=== PATIENT | male | born 1940 | race Caucasian/White ===

== ENCOUNTER 2025-01-09 01:31 | Inpatient (IN) | payer OTHER ==
[2025-01-09 01:41] VITALS: BMI 29.1
[2025-01-09] MEDS ORDERED: ACETAMINOPHEN INJECTION 100 ML ONE (02:28)
[2025-01-09] MEDS: SODIUM CHLORIDE 0.9% 500 ML INFUS.BAG IV ONE ×3 (02:41→06:32)
[2025-01-09] MEDS: ACETAMINOPHEN 1000 MG/100 ML BAG IVPB ONE (02:41)
[2025-01-09 02:49] LABS: BASOPHILS # 0.02 x10^3/uL (0.01-0.08)
[2025-01-09 02:51] LABS: ABSOLUTE IMMATURE GRANULOCYTES 0.06 x10^3/uL (0.0-0.031); EOSINOPHIL % 2.4 % (0.8-7.0); EOSINOPHILS # 0.22 x10^3/uL (0.04-0.54); IMMATURE PLATELET FRACTION # 15.00 x10^3/uL; MCHC 29.5 g/dl (32.3-36.5); MEAN CELL VOLUME 100.3 fl (79.0-92.2); MONOCYTE # 0.47 x10^3/uL (0.30-0.82); MONOCYTE % 5.2 % (5.3-12.2); RDW 13.1 % (12.6-16.6)
[2025-01-09 02:52] LABS: VENOUS BASE EXCESS -6.5 mmol/L (-2-2); VENOUS O2 SATURATION 42.0 % (70-80); VENOUS PCO2 35.0 mmHg (38-52); VENOUS PH 7.338 (7.310-7.410)
[2025-01-09 03:06] LABS: EPI CELLS >36 /uL (0-25.1); HYALINE CASTS 3 /uL (0-3.1); URINE APPEARANCE CLEAR; URINE BACTERIA 11 /uL (0-1359); URINE BILIRUBIN NEGATIVE (NEGATIVE); URINE COLOR DK YELLOW; URINE GLUCOSE (UA) NEGATIVE (NEGATIVE); URINE KETONE TRACE (NEGATIVE); URINE LEUK ESTERASE TRACE (NEGATIVE); URINE NITRITE NEGATIVE (NEGATIVE); URINE PROTEIN 1+ (NEGATIVE); URINE RBC 12 /uL (0-23.9); URINE UROBILINOGEN 1.0 mg/dL (0.2-1.0); URINE WBC 32 /uL (0-25.8)
[2025-01-09 03:20] LABS: CO2 22.0 mmol/L (21-32); GLUCOSE,RANDOM 151.0 mg/dL (74-106)
[2025-01-09 03:23] LABS: SGPT/ALT 33.0 U/L (13-61)
[2025-01-09 03:24] LABS: CREATININE 1.2 mg/dL (0.55-1.3); SGOT/AST 27.0 U/L (15-37)
[2025-01-09 03:25] LABS: TOT PROT 7.8 g/dl (6.4-8.2)
[2025-01-09 03:26] LABS: ALK PHOS 69.0 U/L (45-117)
[2025-01-09 03:28] LABS: LACTIC ACID 4.6 mmol/L (0.4-2.0)
[2025-01-09] MEDS ORDERED: CEFTRIAXONE 1 GM/50 ML BAG ONE (04:14)
[2025-01-09] MEDS: CEFTRIAXONE 1,000 MG in DEXTROSE 5%-WATER - 50 ML IVPB ONE (04:15)
[2025-01-09] MEDS ORDERED: AZITHROMYCIN IVPB 500 MG/250 ML BAG IVPB ONE (04:15)
[2025-01-09] MEDS: AZITHROMYCIN IVPB 500 MG in DEXTROSE 5%-WATER - 250 ML IVPB ONE (04:30)
[2025-01-09] MEDS ORDERED: guaiFENesin/D-METHORPHAN HB 10 ML UNIT-DOSE CUPS PO PRN (05:04)
[2025-01-09] MEDS: SODIUM CHLORIDE 1,000 ML IV SCH ×2 (06:12→07:11)
[2025-01-09] MEDS ORDERED: HALOPERIDOL LACTATE 5 MG/ML ONE (06:23)
[2025-01-09] MEDS ORDERED: PIPERACILLIN/TAZOB 3.375 GM 3.375 GM/50 ML BAG IVPB ONE (06:28)
[2025-01-09] MEDS: HALOPERIDOL LACTATE 5 MG/ML IM ONE (06:28)
[2025-01-09] MEDS ORDERED: THIAMINE HCL 200 MG/2 ML VIAL ONE (06:29)
[2025-01-09] MEDS ORDERED: HEPARIN NA (PORCINE) 5,000 UNITS/ML 1ML VIAL ONE (06:30)
[2025-01-09] MEDS: THIAMINE HCL 200 MG/2 ML VIAL IVPB SCH (06:30)
[2025-01-09 06:35] LABS: MCHC 29.5 g/dl (32.3-36.5); MEAN CELL VOLUME 102.1 fl (79.0-92.2); MEAN PLT VOLUME 10.4 fl (9.4-12.4); RDW 13.2 % (12.6-16.6)
[2025-01-09] MEDS: HEPARIN NA (PORCINE) 5,000 UNITS/ML 1ML VIAL SQ SCH (06:40)
[2025-01-09 06:49] LABS: CO2 19.0 mmol/L (21-32); GLUCOSE,RANDOM 156.0 mg/dL (74-106)
[2025-01-09 06:52] LABS: CREATININE 1.0 mg/dL (0.55-1.3); SGOT/AST 29.0 U/L (15-37); SGPT/ALT 26.0 U/L (13-61)
[2025-01-09 06:54] LABS: TOT PROT 6.2 g/dl (6.4-8.2)
[2025-01-09 06:55] LABS: ALK PHOS 63.0 U/L (45-117)
[2025-01-09] MEDS: PIPERACILLIN/TAZOB 3.375 GM 50 ML IVPB SCH (07:06)
[2025-01-09 07:52] LABS: LACTIC ACID 2.3 mmol/L (0.4-2.0)
[2025-01-09] MEDS: MAGNESIUM SULFATE IN WATER 2 GM/50 ML IVPB IVPB ONE (08:56)
[2025-01-09 09:37] LABS: N-TERMINAL BNP 785.1 pg/ml (5-450)
[2025-01-09] MEDS: AZITHROMYCIN IVPB 500 MG/250 ML BAG IVPB SCH (10:15)
[2025-01-09] MEDS: ASPIRIN 81 MG CHEWABLE TABLETS PO SCH (10:15)
[2025-01-09] MEDS: PIPERACILLIN/TAZOB 3.375 GM 3.375 GM in DEXTROSE 5%-WATER - 50 ML IVPB SCH ×3 (10:15→17:59)
[2025-01-10] MEDS: VANCOMYCIN/WATER FOR INJ (PEG) 1,000 MG/200 ML BAG IVPB ONE (02:25)
[2025-01-10] MEDS ORDERED: CEFTRIAXONE 1,000 MG in DEXTROSE 5%-WATER - 50 ML IVPB SCH (06:00)
[2025-01-10] MEDS ORDERED: AZITHROMYCIN IVPB 500 MG in DEXTROSE 5%-WATER - 250 ML IVPB SCH (06:00)
[2025-01-10 10:17] LABS: ABSOLUTE IMMATURE GRANULOCYTES 0.07 x10^3/uL (0.0-0.031); BASOPHILS # 0.04 x10^3/uL (0.01-0.08); EOSINOPHIL % 6.9 % (0.8-7.0); EOSINOPHILS # 0.60 x10^3/uL (0.04-0.54); MCHC 29.4 g/dl (32.3-36.5); MEAN CELL VOLUME 100.0 fl (79.0-92.2); MEAN PLT VOLUME 10.0 fl (9.4-12.4); MONOCYTE # 0.73 x10^3/uL (0.30-0.82); MONOCYTE % 8.4 % (5.3-12.2); RDW 13.3 % (12.6-16.6)
[2025-01-10 10:41] LABS: CO2 21.0 mmol/L (21-32); GLUCOSE,RANDOM 108.0 mg/dL (74-106)
[2025-01-10 10:44] LABS: CREATININE 1.0 mg/dL (0.55-1.3); SGOT/AST 20.0 U/L (15-37); SGPT/ALT 22.0 U/L (13-61)
[2025-01-10 10:45] LABS: TOT PROT 6.2 g/dl (6.4-8.2)
[2025-01-10 10:47] LABS: ALK PHOS 48.0 U/L (45-117)
[2025-01-11 11:09] LABS: MCHC 29.9 g/dl (32.3-36.5); MEAN CELL VOLUME 99.0 fl (79.0-92.2); MEAN PLT VOLUME 10.0 fl (9.4-12.4); RDW 13.2 % (12.6-16.6)
[2025-01-11 11:42] LABS: IRON SERUM 95 ug/dL (50-175)
[2025-01-11 11:54] LABS: CO2 22.0 mmol/L (21-32); GLUCOSE,RANDOM 131.0 mg/dL (74-106)
[2025-01-11 11:56] LABS: SGPT/ALT 28.0 U/L (13-61)
[2025-01-11 11:57] LABS: CREATININE 1.0 mg/dL (0.55-1.3); IRON SERUM 97.0 ug/dL (50-175); SGOT/AST 27.0 U/L (15-37)
[2025-01-11 11:59] LABS: TOT PROT 6.4 g/dl (6.4-8.2)
[2025-01-11 12:00] LABS: ALK PHOS 51.0 U/L (45-117)
[2025-01-11] MEDS: INSULIN ASPART SLIDING SCALE (NOVOLOG) 1 VIAL SQ SCH (16:21)
[2025-01-11] MEDS ORDERED: INSULIN ASPART SLIDING SCALE (NOVOLOG) 1 VIAL SQ SCH (16:30)
[2025-01-11] MEDS: ROSUVASTATIN CA 20 MG TABLET PO SCH (21:56)
[2025-01-11 22:53] VITALS: RESP 18
[2025-01-12 07:57] LABS: MCHC 30.8 g/dl (32.3-36.5); MEAN CELL VOLUME 98.6 fl (79.0-92.2); MEAN PLT VOLUME 9.8 fl (9.4-12.4); RDW 13.2 % (12.6-16.6)
[2025-01-12] MEDS: TAMSULOSIN HCL 0.4 MG CAP PO SCH (09:28)
[2025-01-12] MEDS: MEMANTINE HCL 10 MG TABLET (FP) PO SCH (09:29)
[2025-01-12] MEDS: FINASTERIDE 5 MG TABLET (FP) PO SCH (09:29)
[2025-01-12] MEDS: MULTIVITAMINS (DAILY MVI) TABLET (FP) PO SCH (09:29)
[2025-01-12] MEDS: amLODIPine BESYLATE 5 MG TABLET (FP) PO SCH (09:29)
[2025-01-12 09:32] LABS: CO2 21.0 mmol/L (21-32); GLUCOSE,RANDOM 104.0 mg/dL (74-106); SGOT/AST 43.0 U/L (15-37); SGPT/ALT 40.0 U/L (13-61)
[2025-01-12 09:34] LABS: TOT PROT 6.4 g/dl (6.4-8.2)
[2025-01-12 09:35] LABS: ALK PHOS 51.0 U/L (45-117); CREATININE 1.0 mg/dL (0.55-1.3)
[2025-01-12] MEDS ORDERED: amLODIPine BESYLATE 5 MG TABLET (FP) PO SCH (10:00)
[2025-01-12] MEDS: ROSUVASTATIN CA 20 MG TABLET PO SCH (22:03)
[2025-01-13 15:19] VITALS: BP 116/67; PULSE 83; TEMP 97.9
== END 2025-01-13 17:37 | disposition home or self-care (01) | DRG 871 ==
LOC: JER 01:31 → JERBED 03:59 → J4S 08:17
PROVIDERS: ADMIT Hospitalist; ATTEND Internal Medicine
DX: A41.89 Other specified sepsis (principal); J69.0 Pneumonitis due to inhalation of food and vomit; R53.2 Functional quadriplegia; G81.94 Hemiplegia, unspecified affecting left nondominant side; E87.20 Acidosis, unspecified; I10 Essential (primary) hypertension; E11.9 Type 2 diabetes mellitus without complications; F03.90 Unspecified dementia, unspecified severity, without behavioral disturbance, psychotic disturbance, mood disturbance, and anxiety; D64.9 Anemia, unspecified; R41.82 Altered mental status, unspecified; R09.02 Hypoxemia; Z74.01 Bed confinement status; Z97.8 Presence of other specified devices
CPT/HCPCS: 36415; 71045-TC-FY; 80053; 81003; 82607; 82728; 82746; 82803; 82962; 83540; 83550; 83605; 83735; 83880; 84100; 84484; 85025; 85027; 85651; 86140; 86850; 86900; 86901; 87040; 87081; 87086; 87637-QW; 87899; 93005; 93010; 93306-TC; 97161-GP; 99285-25